=== PATIENT | female | born 1935 | race Caucasian/White ===

== ENCOUNTER 2023-07-08 01:41 | Day surgery (SDC) | payer MEDICARE, SELFPAY ==
[2023-06-26 13:15] VITALS: BMI 26.9
--- NOTE | 2023-06-26 13:56 | PC.NURSE ---
Spoke with PATIENT regarding medication ELIQUIS. Pt. verbalizes understanding that the last dose of ELIQUS is to be taken on 07/05/2023 and the Endoscopist will instruct them when to restart after the procedure.
[2023-07-08 13:45] VITALS: BP 161/75; PULSE 80; RESP 20; TEMP 36.4; O2SAT 92
--- NOTE | 2023-07-08 13:50 | WPDANESEPPF ---
Anes - Initial Pre Proc Eval Procedure: Operation Date: 07/08/23 14:30 Proposed Procedures p Esophagogastroduodenoscopy - Sushant Wooten MD Date/Time: 07/08/23 13:50 Surgeon: Sushant Wooten MD Pre Op Diagnosis: abdominal pain Patient Data Age: 88 Gender: F Height: 1.63 m Weight: 70.7 kg Last Vital Signs Temp 97.6 F 07/08/23 13:45 Pulse 80 07/08/23 13:45 Resp 20 07/08/23 13:45 BP 161/75 H 07/08/23 13:45 Pulse Ox 92 07/08/23 13:45 O2 Del Method Room Air 07/08/23 13:45 Allergies Allergy/AdvReac Type Severity Reaction Status Date / Time iodine Allergy Severe Loss of Verified 07/08/23 13:42 Consciousness clindamycin Allergy Intermediate Unknown Verified 07/08/23 13:42 Penicillins Allergy Intermediate Hives / Verified 07/08/23 13:42 Red Face Sulfa (Sulfonamide Allergy Intermediate Muscle Verified 07/08/23 13:42 Antibiotics) Spasms Home Medications Medication Instructions Recorded Confirmed Type acetaminophen 325 mg capsule 325 mg PO Q6H PRN Pain 04/02/22 06/26/23 History (Tylenol) apixaban 2.5 mg tablet (Eliquis) 2.5 mg PO BID 04/02/22 06/26/23 History cholecalciferol (vitamin D3) 25 25 mcg PO EVERY OTHER DAY 04/02/22 06/26/23 History mcg (1,000 unit) capsule diltiazem HCl 300 mg 300 mg PO DAILY 04/02/22 06/26/23 History capsule,extended release 24 hr dofetilide 250 mcg capsule 250 mcg PO DAILY 04/02/22 06/26/23 History furosemide 20 mg tablet 20 mg PO BID 04/02/22 06/26/23 History losartan 50 mg tablet 50 mg PO DAILY 04/02/22 06/26/23 History magnesium oxide 400 mg (241.3 mg 400 mg PO BID 04/02/22 06/26/23 History magnesium) tablet metoprolol tartrate 50 mg tablet 50 mg PO BID 04/02/22 06/26/23 History pravastatin 40 mg tablet 40 mg PO DAILY 04/02/22 06/26/23 History Patient hx anesthesia problems: none Family hx anesthesia problems: none Results Review: All pre-operative results and documents have been reviewed as part of the pre-operative evaluation. [facility] Past Medical History Medical History (Updated 04/02/22 @ 13:27 by Patricio Cisneros MD) Afib Aortic aneurysm, abdominal Arthritis of right wrist History of breast cancer History of pacemaker Pacemaker Surgical History Surgical History History of heart artery stent History of heart bypass surgery History of mastectomy right side Family History Family History Father Heart attack Sibling Heart disease Other Cancer Social History Social History Smoking packs per day: 0.75 Smoking cigarettes per day: 15.0 Years smoked: 20 Smoking pack-years: 15.00 Smoking status: Former smoker Alcohol intake: current Substance use: never Substance use type: does not use Living arrangements: with family Occupation/Education: retired Spiritual care concerns: No Anes - Eval Final PreProcedure Day of Procedure 07/08/23 13:50 Patient weight: normal Heart: regular rate and rhythm Lungs: clear to auscultation Airway: Mallampati scale class II Neurological: alert and oriented Last oral intake: >/= 8 hours ASA classification: III Emergent: no Anesthetic plan: proceed Anesthesia type and monitoring: general GIVS and standard monitoring Results Review: All pre-operative results and documents have been reviewed as part of the pre-operative evaluation. Informed Consent: The patient's anesthetic plan and its attendant risks and benefits were discussed with the patient/family/POA. Questions were solicited and answers provided to the satisfaction of the patient/family/POA.
[2023-07-08] MEDS: LACTATED RINGERS 1,000 ML 150 ML IV CONT (13:57)
--- NOTE | 2023-07-08 14:38 | PM.HPGS ---
History of Present Illness History of Present Illness Consent: Risks, benefits, and alternatives have been discussed and questions answered. Patient agrees to proceed with procedure. Chief complaint: abdominal pain Narrative: Samantha Bacon is a 88 year old female with 2 months of intermittent upper abdominal pain and morning nausea, never had egd. She had CT scan elsewhere and apparently no major findings. Review of Systems Review of Systems: All systems reviewed & are unremarkable except as noted in HPI and below PMFSH Past Medical History Medical History (Updated 07/08/23 @ 14:39 by Sushant Wooten MD) Afib Aortic aneurysm, abdominal Arthritis of right wrist History of breast cancer History of pacemaker Nausea Pacemaker Upper abdominal pain Surgical History Surgical History History of heart artery stent History of heart bypass surgery History of mastectomy right side Family History Family History Father Heart attack Sibling Heart disease Other Cancer Social History Social History Smoking packs per day: 0.75 Smoking cigarettes per day: 15.0 Years smoked: 20 Smoking pack-years: 15.00 Smoking status: Former smoker Alcohol intake: current Substance use: never Substance use type: does not use Living arrangements: with family Occupation/Education: retired Spiritual care concerns: No Meds Home Medications and Allergies Home Medications Medication Instructions Recorded Confirmed Type acetaminophen 325 mg capsule 325 mg PO Q6H PRN Pain 04/02/22 06/26/23 History (Tylenol) apixaban 2.5 mg tablet (Eliquis) 2.5 mg PO BID 04/02/22 07/08/23 History cholecalciferol (vitamin D3) 25 25 mcg PO EVERY OTHER DAY 04/02/22 06/26/23 History mcg (1,000 unit) capsule diltiazem HCl 300 mg 300 mg PO DAILY 04/02/22 07/08/23 History capsule,extended release 24 hr dofetilide 250 mcg capsule 250 mcg PO DAILY 04/02/22 07/08/23 History furosemide 20 mg tablet 20 mg PO BID 04/02/22 06/26/23 History losartan 50 mg tablet 50 mg PO DAILY 04/02/22 06/26/23 History magnesium oxide 400 mg (241.3 mg 400 mg PO BID 04/02/22 06/26/23 History magnesium) tablet metoprolol tartrate 50 mg tablet 50 mg PO BID 04/02/22 07/08/23 History pravastatin 40 mg tablet 40 mg PO DAILY 04/02/22 06/26/23 History Allergies Allergy/AdvReac Type Severity Reaction Status Date / Time iodine Allergy Severe Loss of Verified 07/08/23 13:42 Consciousness clindamycin Allergy Intermediate Unknown Verified 07/08/23 13:42 Penicillins Allergy Intermediate Hives / Verified 07/08/23 13:42 Red Face Sulfa (Sulfonamide Allergy Intermediate Muscle Verified 07/08/23 13:42 Antibiotics) Spasms Vital Signs Vital Signs - 24 hr 07/08/23 13:45 Temperature 97.6 F Pulse Rate 80 Respiratory Rate 20 Blood Pressure 161/75 H Pulse Oximetry 92 Oxygen Delivery Room Air Exam Const: General: comfortable and no acute distress HENMT: Face/Nose/Sinus: Normal nares present Eyes: General: appearance normal, both eyes and all related structures Neck: Neck: no JVD Resp: Auscultation: clear to auscultation bilaterally Cardio: Rate: regular rate Rhythm: regular rhythm GI: Inspection: non-distended GI Palp: Yes Soft to palpation Skin: General skin exam: normal color Neuro: General: gait normal Speech: normal speech Extrem: General: normal to inspection Psych: Mental Status: mental status grossly normal Assessment and Plan Assessment and plan (1) Upper abdominal pain: Code(s): R10.10 - Upper abdominal pain, unspecified Status: Acute Assessment and Plan: egd with bx (2) Nausea: Code(s): R11.0 - Nausea Status: Acute
[2023-07-08] MEDS: BENZOCAINE (*SP) 60 ML SPRAY CAN (HURRICAINE) 1 SPRAY MUCOUS MEM (14:45)
[2023-07-08 14:56] VITALS: BP 129/63; PULSE 90; RESP 21; O2SAT 93
--- NOTE | 2023-07-08 15:00 | SUR.OPER ---
small bowel polyp not retrieved Dr Jay mak
[2023-07-08 15:06] VITALS: BP 117/57; PULSE 77; RESP 23; O2SAT 93
[2023-07-08 15:16] VITALS: BP 129/56; PULSE 76; RESP 15; O2SAT 93
== END 2023-07-08 15:25 | disposition home or self-care (01) ==
PROVIDERS: PCP Internal Medicine; Visit Provider Internal Medicine Gastroenterology
PROC: 0DJ08ZZ Inspection of Upper Intestinal Tract, Via Natural or Artificial Opening Endoscopic (ICD-10-PCS; CPT 43235; principal; 2023-07-08 14:30)
DX: K29.50 Unspecified chronic gastritis without bleeding (principal); K29.80 Duodenitis without bleeding; K31.7 Polyp of stomach and duodenum; I48.91 Unspecified atrial fibrillation; I71.40 Abdominal aortic aneurysm, without rupture, unspecified; Z79.01 Long term (current) use of anticoagulants; Z95.0 Presence of cardiac pacemaker; Z85.3 Personal history of malignant neoplasm of breast; Z95.5 Presence of coronary angioplasty implant and graft; Z95.1 Presence of aortocoronary bypass graft; Z87.891 Personal history of nicotine dependence
CPT/HCPCS: 43239; 43251; 88305; J2704; J7120

== ENCOUNTER 2025-01-07 14:37 | Outpatient (CLI) | payer MEDICARE, SELFPAY ==
--- NOTE | ~2025-01-07 | XR_ITS ---
EXAMINATION: XR chest 2V, 01/07/2025 14:46 CDT HISTORY: ACUTE COUGH COMPARISON: No comparisons available. Technique: 2 views obtained. Findings: Mild pulmonary venous congestion. No pneumothorax. Mild cardiomegaly. Mediastinal and hilar contours are within normal limits. Poststernotomy. Left pacemaker. Impression: Mild CHF Reviewed, dictated and finalized at location A. Impression: Mild CHF
== END 2025-01-07 14:38 | disposition home or self-care (01) ==
PROVIDERS: PCP Internal Medicine; Visit Provider Internal Medicine
DX: R05.1 Acute cough (principal); I50.9 Heart failure, unspecified
CPT/HCPCS: 71046

== ENCOUNTER 2025-01-18 14:23 | Outpatient (CLI) | payer MEDICARE, SELFPAY ==
--- NOTE | ~2025-01-18 | XR_ITS ---
EXAMINATION: XR chest 2V, 01/18/2025 14:38 CDT HISTORY: Hypoxemia COMPARISON: No comparisons available. Technique: 2 views obtained. Findings: Moderate pulmonary venous congestion. No pneumothorax. Mild cardiomegaly. Mediastinal and hilar contours are within normal limits. Post sternotomy. Left pacemaker. Impression: CHF Reviewed, dictated and finalized at location P. Impression: CHF
== END 2025-01-18 14:24 | disposition home or self-care (01) ==
LOC: MICIMG 14:25
PROVIDERS: PCP Internal Medicine; Visit Provider Internal Medicine
DX: I50.9 Heart failure, unspecified (principal); R09.02 Hypoxemia
CPT/HCPCS: 71046

== ENCOUNTER 2025-04-12 14:20 | Outpatient (CLI) | payer MEDICARE, SELFPAY ==
--- NOTE | 2025-04-12 | CONSULT_PTH ---
PATIENT: Samantha Bacon LOC: [facility] U#:[id number] AGE/SX: 89/F ROOM: RE04/12/[address]: Ramez Rodas MD : 1935 BED: DIS: 04/12/2025 SPEC #: [id number] RECD: 04/12/25 16:19 STATUS: NIKOS REYuli #: [id number] JESSICA: 04/12/25 00:[address]: Ramez Rodas DEPT: [facility] Consult RECD BY: Barry Aguilar MLT ENTERED: 04/12/25 16:20 SP TYPE: Consult OT DR: Cornelio Magaña, Tissues: A - Peripheral Smear Procedures: Hematology Consult
--- NOTE | 2025-04-12 | CY_PTH ---
PATIENT: Samantha Bacon LOC: [facility] U#:[id number] AGE/SX: 89/F ROOM: RE04/12/[address]: Ramez Rodas MD : 1935 BED: DIS: 04/12/2025 SPEC #: [id number] RECD: 04/13/25 07:12 STATUS: NIKOS REQ #: [id number] JESSICA: 04/12/25 00:[address]: Ramez Rodas DEPT: [facility] Cytology RECD BY: Geraldine Montemayor ENTERED: 04/13/25 07:12 SP TYPE: Cytology OT DR: Cornelio Magaña, Tissues: A - Flow Procedures: Flow Cytometry
--- OUTSIDE RECORDS SUMMARY | 2025-04-12 13:30 | XMS_ITS | Encounter Summary ---
Author Organization [facility] [employer] [facility] Address [address] [place] [address] Care Team Providers Care Discharge Specialist Name Role Phone Unavailable Primary Care Provider Unavailabl e Reason for Visit * Reason Comments Anemia Encounter Details Date Type Department Care Team (Late st Contact Info) Description 04/12/2025 1:30 PM CHANNEL SALES MANAGER Office Visit [facility] Oncology and Hematology - [place] [address] [place] [address] Ramez Rodas MD [address] [place] [address] Anemia, chronic disease (Primary Dx); Other vitamin B12 deficiency anemia Social History Tobacco Use Types Packs/Day Years Used Date Smoking Tobacco: Former Cigarettes 1 30 0 04/21/1964 - 04/21/1994 Smokeless Tobacco: Never Alcohol Use Standard Drinks/Week Comments Never 0 (1 standard drink = 0.6 oz pur e alcohol) Comments Unknown Sex and Gender Information Value Date Recorded Sex Assigned at Not on file Legal Sex Female 11:21 PM CDT Gender Identity Not on file Sexual Orientation Not on file documented as of this encounter Last Filed Vital Signs Vital Sign Reading Time Taken Comments Blood Pressure 115/67 04/12/2025 1:19 PM CHANNEL SALES MANAGER Pulse 80 04/12/2025 1:19 PM CHANNEL SALES MANAGER Temperature 36.6 C (97.9 F) 04/12/2025 1:19 PM CHANNEL SALES MANAGER Respiratory Rate 16 04/12/2025 1:19 PM CHANNEL SALES MANAGER Oxygen Saturation 90% 04/12/2025 1:1 9 PM CHANNEL SALES MANAGER 3 liters O2 Inhaled Oxygen Concentration - - Weight 63.8 kg (140 lb 9.6 oz) 04/12/20 25 1:19 PM CHANNEL SALES MANAGER Height 162.6 cm (5' 4) 04/12/2025 1:19 PM CHANNEL SALES MANAGER Body Mass Index 24.13 04/12/2025 1:19 PM CHANNEL SALES MANAGER documented in this encounter Functional Status * Encounter Vitals Question Answer Date of Assessment Author Pain Score Zero 04/12/2025 1:19 PM CHANNEL SALES MANAGER Alejandra Romero documented as of this encounter Progress Notes * Ramez Rodas MD - 04/12/2025 1:30 PM CST Hematology-oncology consult Note Requesting Physician Primary Care Physician No primary care provider on file. Problem list There is no problem list on file for this patient. Previous TREATMENT N/A ? Reason for Visit Samantha Bacon is a 89 y.o. female who was referred for consultation for anemia along with her daugther. History of present illness She has history of coronary artery disease status post CABG in the and [place] [address] 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 She has history of atrial fibrillation underwent cardioversion in the past, status post pacemaker in 2019. She takes Eliquis 2.5 mg twice daily and dofetilide to 50 mg twice daily. She also has hypertension, hyperlipidemia and history of CHF with ejection fraction 60% in December 2024. 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 Also has history of breast cancer in 1994 s/p R mastectomy and adjuvant chemo and now undergoes annual mammograms. She was admitted in December for abdominal pain to [facility] associated with nausea. Imaging was unremarkable per records, abdominal aortic aneurysm repair was normal with no issues. Patient received pain medications that cause sedation resulting in Narcan which eventually led to A-fib with RVR. Patient underwent cardioversion during the hospital stay and initiated anticoagulation. Upper GI endoscopy demonstrated gastritis with old bleeding ulcer and grade 1 varices. Colonoscopy showed a polyp which was removed. She initiated B12 and folic acid supplements for hematology consultation in the hospital. She takes clopidogrel, diltiazem, dofetilide, Eliquis, fluticasone, furosemide, losartan, metoprolol, nitroglycerin, pravastatin, vitamin D at home 01/24/2025: CBC demonstrated white blood cells at 3.1, hemoglobin at 8.8 g/dL, hematocrit 29.7, MCV at 1.4, platelets 199. 01/06/2025: Hemoglobin was 9.9 g/dL and white blood cells at 3.7. Serum folate 7.1 and vitamin B12 at 901. 12/30/2024: Hemoglobin 12.1, white cell count 2.76 12/26/2024: Vitamin B12 very low at 166 CT head on December 27, 2024 demonstrated small vessel disease with no bleeding or mass CT chest and pelvis on December 27 demonstrated findings post endovascular repair of abdominal aortic aneurysm (6 stents placed in 07/2024), no significant change in severely enlarged infrarenal abdominal aortic aneurysm at 8.5 x 6.7 cm, cardiomegaly. Bilateral common iliac artery aneurysms. She reported having night sweats for past few months + weight loss of 30 pounds since early 2024. Past Medical History No past medical history on file. Surgical History No past surgical history on file. Medications No current outpatient medications on file. No current facility-administered medications for this visit. Allergies Not on File Immunizations: There is no immunization history on file for this patient. Family History No family history on file. Social History Social History Tobacco Use Smoking status: Not on file Smokeless tobacco: Not on file Substance Use Topics Alcohol use: Not on file Review of Systems Negative except as listed in HPI Physical Exam Vitals: As per nursing note Constitutional: Well developed, well nourished, on O2 Teeth and gum. No signs of infection or swelling. Eyes: PERRL, conjunctiva normal HEENT: Atraumatic, external ears normal, nose normal, oropharynx moist, no pharyngeal exudates. no sinus tenderness Respiratory: coarse breath sounds Cardiovascular: Normal rate, normal rhythm GI: Soft, nondistended, normal bowel sounds, nontender, no splenomegaly, no hepatomegaly, no mass, no rebound, no guarding Musculoskeletal: No edema, no tenderness, no deformities. Back- no tenderness Lymphatic: No lymphadenopathy noted Neurologic: Alert & oriented x 3 Psychiatric: Speech and behavior appropriate ? labs No results found for this or any previous visit (from the past 24 hours). Pathology ? Imaging & Other Studies Performance Status? Assessment / Plan: ? Macrocytic anemia: -Reviewed inpatient medical records which demonstrated very low vitamin B12 at 166 on December 27, 2024 and interestingly hemoglobin was normal at greater than 12 g/dL. Patient seems to have [id number] injections and patient and hemoglobin on January 24 dropped to 8.8 g/dL based on available medical records, did not see if hemolytic anemia workup has been performed. Macrocytic Anemia: - Plan to repeat CBC, CMP, B12 level, folate - Check LDH, haptoglobin, direct antiglobulin test, TSH - Iron panel, serum ferritin, peripheral smear, flow cytometry (since pt has weight loss, night sweats) - pt received B12 injections while inpatient in Sep and is on B12 oral supplementation - Plan for RTC 4-6 weeks and if none of above w/u is an etiology, plan for bone marrow bx. Occasional Abdominal pain : - Found to have a gastric ulcer in Dec 2024. On PPI improving Mild COPD: - On O2 continuous Ramez Rodas MD ,04/12/2025 12:03 PM ? Total time spent 60 minutes, two third of the total time spent counseling patient [id number]. CC:? NEL SALES MANAGER documented in this encounter Plan of Treatment Upcoming Encounters Date Type Department Care Team (Late st Contact Info) Description 05/09/2025 4:30 PM CHANNEL SALES MANAGER Telephone Check Up [facility] Oncology and Hematology - [place] [address] [facility] [address] [address] [place] [address] Fabricio Brooks MD [address] [facility] [address] [place] [address] Scheduled Orders Name Type Priority Associated Diagnoses Orde r Schedule CBC WITH DIFFERENTIAL Lab Routine Anemia, chronic disease Ordered: 04/12/2025 COMPREHENSIVE METABOLIC PANEL Lab Stat Anemia, chronic disease Expected: 04/12/2025, Expires: 04/12/2026 FLOW CYTOMETRY PANEL Lab Routine Anemia, chronic disease Ordered: 04/12/2025 VITAMIN B12 AND FOLATE Lab Routine Anemia, chronic disease Expected: 04/12/2025, Expires: 04/12/2026 LACTATE DEHYDROGENASE Lab Routine Anemia, chronic disease Ordered: 04/12/2025 DIRECT ANTIGLOBULIN TEST W/REFLEX Blood Bank Routine Anemia, chronic disease Ordered: 04/12/2025 IRON, TIBC, AND PERCENT SATURATION Lab Routine Anemia, chronic disease Expected: 04/12/2025, Expires: 04/12/2026 FERRITIN Lab Routine Anemia, chronic disease Expected: 04/12/2025, Expires: 04/12/2026 TSH Lab Routine Anemia, chronic disease Ordered: 04/12/2025 PERIPHERAL BLOOD SMEAR PATHOLOGY INTERP Lab Routine Anemia, chronic disease Ordered: 04/12/2025 documented as of this encounter Visit Diagnoses Diagnosis Anemia, chronic disease- Primary Anemia of other chronic disease Other vitamin B12 deficiency anemia documented in this encounter
--- OUTSIDE RECORDS SUMMARY | 2025-04-12 14:24 | XMS_ITS | Clinical Summary ---
Author Organization [facility] Address [address] [place] [address] Care Team Providers Care Software Deployment Engineer Name Role Phone Cornelio Magaña MD Primary Care Provider [phone] Source Comments [facility],non-owned Affiliates and Associated Physician Practices is amultiple site organization consisting of ambulatory clinics and hospital sitesin [place], [place], [place] and [place]. This disclosure is being madepursuant to the Care Everywhere program and may not contain all information available regarding this patient. Last updated 18.[facility] Allergies Active Allergy Reactions Criticality Noted Date Comments Penicillins Rash Medium 11/22/2015 Povidone Iodine Rash Medium 11/22/2015 Sulfa Drugs Other Low 11/22/2015 Leg pain Medications * Be aware that medications may not be up to date on this document. Alwaysverify current medications with the patient. acetaminophen CR (TYLENOL ARTHRITIS PAIN) 650 MG tablet Take 650 mg by mouth q6h PRN (Pain). 11/22/2015 Active sotalol (BETAPACE) 80 MG tablet 11 11/07/2015 Active metoprolol tartrate (LOPRESSOR) 25 MG tablet 11 08/15/2015 Active magnesium oxide (MAGNESIUM-OXIDE) 400 (241.3 MG) MG tablet 11 10/28/2015 Active lisinopril (PRINIVIL; ZESTRIL) 20 MG tablet 11 10/28/2015 Active isosorbide mononitrate CR 24hr (IMDUR) 30 MG tablet 5 08/16/2015 Active pravastatin (PRAVACHOL) 40 MG tablet 5 10/28/2015 Active rivaroxaban (XARELTO) 15 MG tablet 0 08/28/2015 Active hydroCHLOROthiazi de (MICROZIDE) 12.5 MG capsule 11 10/28/2015 Act fletcher Social History Tobacco Use Types Packs/Day Years Used Date Smoking Tobacco: Former Alcohol Use Standard Drinks/Week Comments No 0 (1 standard drink = 0.6 oz pur e alcohol) Comments Unknown Sex and Gender Information Value Date Recorded Sex Assigned at Not on file Legal Sex Female 5:35 PM SOLAR POWER INSTALLER Gender Identity Not on file Sexual Orientation Not on file Last Filed Vital Signs Vital Sign Reading Time Taken Comments Blood Pressure 145/83 01/17/2016 11:46 AM CDT Pulse 80 01/17/2016 11:46 AM CDT Temperature - - Respiratory Rate - - Oxygen Saturation 90% 01/17/2016 11:46 AM CDT Inhaled Oxygen Concentration - - Weight 81.6 kg (180 lb) 01/17/2016 7:13 AM CDT Height 162.6 cm (5' 4) 01/17/2016 7:13 AM CDT Body Mass Index 30.9 01/17/2016 7:13 AM CDT Plan of Treatment Health Maintenance Due Date Last Done Comments BONE DENSITY TESTING 1935 DTAP/TDAP/TD VACCINES (1 - Tdap) 01/24/1956 PNEUMOCOCCAL VACCINE 50+ (1 of 1 - PCV) 1987 ZOSTER VACCINE (1 of 2) 1987 Respiratory Syncytial Virus (RSV) Vaccine Pt: or over 60 yrs (1 - 1-dose 75+ series) 01/24/2012 DEPRESSION SCREENING 04/21/2024 MEDICARE AWV CALENDAR YEAR 2024 COVID-19 VACCINE ( - 2024-2 6 season) 2024 INFLUENZA VACCINE (#1) 2024 HEPATITIS B VACCINE Aged Out No longe r eligible based on patient's age to complete this topic HIB VACCINE Aged Out No longer eligi ble based on patient's age to complete this topic HPV VACCINE Aged Out No longer eligi ble based on patient's age to complete this topic MENINGOCOCCAL (Group B) VACC INE SHARED DECISION-MAKING Aged Out No longer eligibl e based on patient's age to complete this topic MENINGOCOCCAL GROUPS A/C/Y/W VACCINE Aged Out No longer eligible b ased on patient's age to complete this topic Insurance SELF PAY NO INSURANCE Member Subscriber Plan / Payer (Ef fective for All Dates) Name:Wander Villareal Member ID:Not on file Relation to Subscriber:Not on file Name:WANDER VILLAREAL Subscriber ID:Not on file (Home) Address: [address] [place] [phone] Payer ID:Not on file Group ID:Not on file Type:Self Pay Address: [place], [place] SELF PAY NO INSURANCE Member Subscriber Plan / Payer (Ef fective for All Dates) Name:Wander Villareal Member ID:Not on file Relation to Subscriber:Not on file Name:WANDER VILLAREAL Subscriber ID:Not on file (Home) Address: [address] [place] [phone] Payer ID:Not on file Group ID:Not on file Type:Self Pay Address: [place], [place] [employer] MED[employer]ARE ADV SELF PAY NO INSURANCE Member Subscriber Plan / Payer (Ef fective for All Dates) Name:Wander Villareal Member ID:Not on file Relation to Subscriber:Not on file Name:WANDER VILLAREAL Subscriber ID:Not on file (Home) Address: [address] [place] [phone] Payer ID:Not on file Group ID:Not on file Type:Self Pay Address: [place], [place] Care Teams Software Deployment Engineer Relationship Specialty Start Date End Date Cornelio Magaña MD [address] [phone] PCP - General 10/18/15
--- OUTSIDE RECORDS SUMMARY | 2025-04-12 14:24 | XMS_ITS | Encounter Summary ---
Author Organization [facility] Address [address] [facility] [place] [address] Care Team Providers Care Infectious Disease Physician Name Role Phone Cornelio Magaña MD Primary Care Provider [phone] Encounter Details Date Type Department Care Team (Late st Contact Info) Description 12/17/2018 Lab Requisition [facility] Care DermPath Lab [address] [facility] [place] [address] James [place] [address] Social History Tobacco Use Types Packs/Day Years Used Date Smoking Tobacco: Former Alcohol Use Standard Drinks/Week Comments No 0 (1 standard drink = 0.6 oz pur e alcohol) Comments Unknown Sex and Gender Information Value Date Recorded Sex Assigned at Not on file 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 Gender Identity Not on file Sexual Orientation Not on file documented as of this encounter Plan of Treatment Not on file documented as of this encounter Procedures Procedure Name Priority Date/Time Associated Diagnosis Comments DERMATOPATHOLOGY Routine 12/16/2018 12:0 0 AM CDT documented in this encounter Results * DERMATOPATHOLOGY (12/16/2018 12:00 AM CDT) Case Report Dermatopathology Report Case: [id number] Authorizing Provider: James Green MD Collected: 12/16/2018 12:00 AM Ordering Location: [facility] DermPath Lab Received: 12/17/2018 12:17 PM Pathologist: Kenney Geronimo MD Specimen: Skin, left nasal sidewall 2:35 PM CDT DERMATOPATHOLOGY LABORATORY Final Diagnosis Specimen A. 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 2:35 PM CDT DERMATOPATHOLOGY LABORATORY Gross Description Specimen A: Received is one formalin filled container labeled with the patient's name and designated left nasal sidewall. The specimen consists of a shave biopsy measuring [id number]. Jar 0. 2:35 PM CDT DERMATOPATHOLOGY LABORATORY Microscopic Description Specimen A. SKIN, left nasal sidewall: There is focal parakeratosis. The lower half of the epidermis shows disorderly maturation of keratinocytes with nuclear pleomorphism. Focally there is a suprabasilar cleft with acantholytic cells. 2:35 PM CDT DERMATOPATHOLOGY LABORATORY Disclaimer An external and internal positive and negative controls are appropriate for the histochemical, immunohistochemical and immunofluorescence stain(s) in this case (if any), except where stated explicitly. The performance characteristics of the stain(s) cited in this report were developed and its performance characteristic determined by the Dermatopathology Laboratory at [facility], directed by Dr. Dl Geronimo. These tests need not be, and therefore are not, approved by the [place] Food and Drug Administration. The tests are used for clinical purposes. Billing Codes Specimen Charges Stain Charges 53460 1 2:35 PM CDT DERMATOPATHOLOGY LABORATORY Embedded Images 2:35 PM CDT DERMATOPATHOLOGY LABORATORY Pathology/Cytolog y TISSUE SPECIMEN FROM SKIN / Unknown 12/16/2018 12/17/2018 12:17 PM CDT James Green MD LAB - PATHOLOGY/CYTOLOGY ORD ERABLES Final Result DERMATOPATHOLOGY LABORATORY [facility] - Department of Dermatology [address] [facility], [address] [place] [address], [facility] [phone] documented in this encounter Visit Diagnoses Not on filedocumented in this encounter Care Teams Infectious Disease Physician Relationship Specialty Start Date End Date Cornelio Magaña MD [address] [address] PCP - General 10/18/15 documented as of this encounter
--- OUTSIDE RECORDS SUMMARY | 2025-04-12 14:24 | XMS_ITS ---
Author Organization [facility] Address [address] [place] [address] Care Team Providers Care Back Tufter Name Role Phone Cornelio Magaña MD Primary Care Provider Scott Norris MD Unavailable Lizbeth Queen MD Unavailable Pillo Pedroza MD Unavailable Nikolas Szymanski MD Unavailable Adrianne Aguilar MD Unavailable Avila Acevedo MD Unavailable Active Problems Problem Noted Date Diagnosed Date Severe protein-calorie malnutrition 10/07/2024 Hypoxia 10/06/2024 Epigastric pain 09/16/2024 Melena 08/26/2024 Coronary artery disease 08/03/2024 Assessment & Plan (08/03/2024 8:36 AM CDT): - CAD s/p CABG 1994 f/b PCI within SVG 2013 - Continue ASA, statin - Continue cardiac meds when able Sinus node dysfunction 08/03/2024 Assessment & Plan (08/03/2024 8:37 AM CDT): S/p Biotronik PPM 2020 Chronic kidney disease 08/03/2024 Assessment & Plan (08/03/2024 8:38 AM CDT): - Cr clearance 39 - Avoid nephrotoxic medications - Monitor cr AAA (abdominal aortic aneurysm) without rupture 08/03/2024 Cellulitis 06/21/2024 Constipation 06/21/2024 Disorder of shoulder 06/21/2024 Localized, primary osteoarthritis of hand 2024 Loss of hair 06/21/2024 Low back pain 06/21/2024 Overview (06/21/2024): spinal stenosis, CT 11/02 Near syncope 06/21/2024 Neck pain 06/21/2024 Olecranon bursitis 06/21/2024 Pain in wrist 06/21/2024 Abnormal finding on mammography 12/17/2023 Gastritis 08/12/2023 Abdominal pain 04/22/2023 Dyspnea 03/24/2023 Nausea 03/24/2023 Otalgia of right ear 05/12/2022 Hypercalcemia 03/21/2022 Irritable bowel syndrome 06/06/2021 Osteoarthritis 06/06/2021 Skin lesion 09/05/2020 Bilateral pleural effusion 02/03/2019 Sleep apnea 10/13/2018 Overview (06/21/2024): can't use CPAP Hyperlipidemia 10/13/2018 Essential hypertension 10/13/2018 Assessment & Plan (08/04/2024 7:17 AM CDT): - VS Q4 hrs and PRN - Home regimen: diltiazem, lasix, losartan, metoprolol - Resume home regimen as able Coronary atherosclerosis 10/13/2018 Overview (06/21/2024): s/p VA Atrial fibrillation 10/13/2018 Overview (06/21/2024): recurrent Assessment & Plan (08/04/2024 7:18 AM CDT): Home regimen: Eliquis (last dose 07/31), cardizem, tikosyn, metoprolol - Resume home regimen as able - Follow up plan to resume Eliquis Shoulder joint pain 01/07/2017 Abdominal aortic aneurysm (AAA) 03/03/2015 Assessment & Plan (08/04/2024 7:20 AM CDT): 08/03: s/p 3 vessel PMEG to SMA, bilateral renals. -OOB/ ambulate - ASA, start Plavix today. - Q4 NV exams - Monitor incisions for bleeding/hematoma - Normotension BP goals - Pain control - DC stone - Advance diet as tolerated Malignant tumor of breast 04/20/1989 Overview (06/21/2024): mastectomy, chemo Current Treatment and Therapy Plans No current plan information found. Past Treatment and Therapy Plans No past plan information found. Lifetime Dose Tracking * Chemical Lifetime Dose Automatic Entry Manual Entr y DLP 1,430 mGycm 1,430 mGycm 0 mGycm Resolved Problems Problem Noted Date Diagnosed Date Resolved Date Contrast media allergy 08/03/202408/03
--- OUTSIDE RECORDS SUMMARY | 2025-04-12 14:24 | XMS_ITS | Encounter Summary ---
Author Organization [facility] Address [address] [place] [address] Care Team Providers Care Wet Cotton Feeder Name Role Phone Cornelio Magaña MD Primary Care Provider Encounter Details Date Type Department Care Team (Late st Contact Info) Description 01/11/2021 Lab Requisition [facility] Care DermPath Lab [address] [facility] [place] [address] [place] [address] Social History Tobacco Use Types Packs/Day Years Used Date Smoking Tobacco: Former Alcohol Use Standard Drinks/Week Comments No 0 (1 standard drink = 0.6 oz pur e alcohol) Comments Unknown Sex and Gender Information Value Date Recorded Sex Assigned at Not on file 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 Gender Identity Not on file Sexual Orientation Not on file documented as of this encounter Plan of Treatment Not on file documented as of this encounter Procedures Procedure Name Priority Date/Time Associated Diagnosis Comments DERMATOPATHOLOGY Routine 01/09/2021 3:33 AM CDT documented in this encounter Results * DERMATOPATHOLOGY (01/09/2021 3:33 AM CDT) Case Report Dermatopathology Report Case: [id number] Authorizing Provider: James Green MD Collected: 01/09/2021 03:33 AM Ordering Location: [facility] DermPath Lab Received: 01/11/2021 05:59 AM Pathologist: Anel Oleary MD Specimen: Skin, left ala 2:58 PM CDT DERMATOPATHOLOGY LABORATORY Final Diagnosis Specimen A. 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 2:58 PM CDT DERMATOPATHOLOGY LABORATORY Gross Description Specimen A: Received is one formalin filled container labeled with the patient's name and designated left ala. The specimen consists of a shave biopsy measuring [id number]. Jar 0. 2:58 PM CDT DERMATOPATHOLOGY LABORATORY Microscopic Description Specimen A. SKIN, left ala: Arising in the epidermis and extending into the dermis there are irregularly shaped aggregates of keratinocytes showing evidence of premature cornification. 2:58 PM CDT DERMATOPATHOLOGY LABORATORY Disclaimer An external and internal positive and negative controls are appropriate for the histochemical, immunohistochemical and immunofluorescence stain(s) in this case (if any), except where stated explicitly. The performance characteristics of the stain(s) cited in this report were developed and its performance characteristic determined by the Dermatopathology Laboratory at [facility], directed by Dr. Dl Geronimo. These tests need not be, and therefore are not, approved by the [place] Food and Drug Administration. The tests are used for clinical purposes. Billing Codes Specimen Charges Stain Charges 41021 1 2:58 PM CDT DERMATOPATHOLOGY LABORATORY Embedded Images 2:58 PM CDT DERMATOPATHOLOGY LABORATORY Pathology/Cytolo gy TISSUE SPECIMEN FROM SKIN / Unknown 01/09/2021 3:33 AM CDT 01/11/2021 5:59 AM CDT us James Green MD LAB - PATHOLOGY/CYTOLOGY ORD ERABLES Final Result DERMATOPATHOLOGY LABORATORY [facility] - Department of Dermatology [address], [address] [phone] documented in this encounter Visit Diagnoses Not on filedocumented in this encounter Care Teams Wet Cotton Feeder Relationship Specialty Start Date End Date Cornelio Magaña MD [address] [facility] [address] [place] [phone] PCP - General 10/18/15 documented as of this encounter
--- OUTSIDE RECORDS SUMMARY | 2025-04-12 14:24 | XMS_ITS | Encounter Summary ---
Author Organization [facility] Address [address] [facility] [place] [address] Care Team Providers Care Document Management Consultant Name Role Phone Cornelio Magaña MD Primary Care Provider [phone] Encounter Details Date Type Department Care Team (Late st Contact Info) Description 01/14/2019 Lab Requisition [facility] Care DermPath Lab [address] [facility], [place] [address] James Green MD [place] [address] Social History Tobacco Use Types Packs/Day Years Used Date Smoking Tobacco: Former Alcohol Use Standard Drinks/Week Comments No 0 (1 standard drink = 0.6 oz pur e alcohol) Comments Unknown Sex and Gender Information Value Date Recorded Sex Assigned at Not on file 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 Gender Identity Not on file Sexual Orientation Not on file documented as of this encounter Plan of Treatment Not on file documented as of this encounter Procedures Procedure Name Priority Date/Time Associated Diagnosis Comments DERMATOPATHOLOGY Routine 01/13/2019 12:0 0 AM CDT documented in this encounter Results * DERMATOPATHOLOGY (01/13/2019 12:00 AM CDT) Case Report Dermatopathology Report Case: [id number] Authorizing Provider: James Green MD Collected: 01/13/2019 12:00 AM Ordering Location: [facility] DermPath Lab Received: 01/14/2019 01:56 PM Pathologist: Kenney Geronimo MD Specimen: Skin, right inferior patella 12:22 PM CDT DERMATOPATHOLOGY LABORATORY Final Diagnosis Specimen A. SKIN, right inferior patella: VERRUCA VULGARIS (B07.8) 12:22 PM CDT DERMATOPATHOLOGY LABORATORY at 1221 CDT Clinical History R/O SCC, KA. 12:22 PM CDT DERMATOPATHOLOGY LABORATORY Gross Description Specimen A: Received is one formalin filled container labeled with the patients name and designated right inferior patella. The specimen consists of a shave removal measuring [id number], bisected. Jar 0. 12:22 PM CDT DERMATOPATHOLOGY LABORATORY Microscopic Description Specimen A. SKIN, right inferior patella: There is digitated epidermal hyperplasia, hypergranulosis, vacuolated granular layer cells, and compact hyperorthokeratosis . 12:22 PM CDT DERMATOPATHOLOGY LABORATORY Disclaimer An external and internal positive and negative controls are appropriate for the histochemical, immunohistochemical and immunofluorescence stain(s) in this case (if any), except where stated explicitly. The performance characteristics of the stain(s) cited in this report were developed and its performance characteristic determined by the Dermatopathology Laboratory at [facility], directed by Dr. Dl Geronimo. These tests need not be, and therefore are not, approved by the [place] Food and Drug Administration. The tests are used for clinical purposes. Billing Codes Specimen Charges Stain Charges 83804 1 12:22 PM CDT DERMATOPATHOLOGY LABORATORY Embedded Images 12:22 PM CDT DERMATOPATHOLOGY LABORATORY Pathology/Cytolog y TISSUE SPECIMEN FROM SKIN / Unknown 01/13/2019 01/14/2019 1:56 PM CDT us James Green MD LAB - PATHOLOGY/CYTOLOGY ORD ERABLES Final Result DERMATOPATHOLOGY LABORATORY [facility] - Department of Dermatology [address] [facility], [address]th [address] [place], [place] [address] [place] [address] documented in this encounter Visit Diagnoses Not on filedocumented in this encounter Care Teams Document Management Consultant Relationship Specialty Start Date End Date Cornelio Magaña MD [address] [facility] [address] [place] [id number] PCP - General 10/18/15 documented as of this encounter
--- OUTSIDE RECORDS SUMMARY | 2025-04-12 14:24 | XMS_ITS | Encounter Summary ---
Author Organization [facility] Address [address] [place] [address] Care Team Providers Care Ribbon Hand Name Role Phone Cornelio Magaña MD Primary Care Provider [phone] Scott Norris MD Unavailable [phone] Lizbeth Queen MD Unavailable [phone] Pillo Pedroza MD Unavailable Nikolas Szymanski MD Unavailable [phone] Adrianne Aguilar MD Unavailable [phone] Avila Acevedo MD Unavailable Encounter Details Date Type Department Care Team (Late st Contact Info) Description 09/02/2024 [facility] Post Discharge Follow up phone call [facility] [address] [place] [address] Ranjana Parisi Social History Tobacco Use Types Packs/Day Years Used Date Smoking Tobacco: Former Cigarettes 0.8 38 S tarted: 7 Smokeless Tobacco: Never Alcohol Use Standard Drinks/Week Comments Not Currently 0 (1 standard drink = 0.6 oz pur e alcohol) [facility] Utilities Answer Date Recorded In the past 12 months has e electric, gas, oil, or water company threatened to shut off services in your home? No 08/27/2024 Social Connection and Isolation Panel Answer Date Recorded In a typical week, how many times do you talk on the phone with family, friends, or neighbors? Three times a week 08/27/2024 How often do you get togethe r with friends or relatives? Three times a week 08/27/2024 How often do you attend chur or evangelical services? More than 4 times per year 08/27/2024 Do you belong to any clubs o r organizations such as presybeterian groups, unions, fraternal or athletic groups, or school groups? No 08/27/2024 How often do you attend meet ings of the clubs or organizations you belong to? Never 08/27/2024 Are you , , di vorced, , never , or living with a partner? 08/27/2024 AUDIT-C Answer Date Recorded Q1: How often do you have a drink containing alcohol? Never 08/03/2024 Q2: How many drinks containi ng alcohol do you have on a typical day when you are drinking? Patient does not drink Q3: How often do you have si x or more drinks on one occasion? Never 08/03/2024 Overall Financial Resource Strain (CARDIA) Answe r Date Recorded How hard is it for you to pa y for the very basics like food, housing, medical care, and heating? Not hard at all 08/27/2024 [facility] - Occupational Stress Questionnaire Answer Date Recorded Do you feel stress - tense, restless, nervous, or anxious, or unable to sleep at night because your mind is troubled all the time - these days? Only a little 08/27/2024 Hunger Vital Sign Answer Date Recorded Within the past 12 months, y ou worried that your food would run out before you got the money to buy more. Never true 08/28/19 25 Within the past 12 months, t he food you bought just didn't last and you didn't have money to get more. Never true 08/27/2024 PRAPARE - Transportation Answer Date Re corded In the past 12 months, has l ack of transportation kept you from medical appointments or from getting medications? No 12/2024 In the past 12 months, has l ack of transportation kept you from meetings, work, or from getting things needed for daily living? No 08/27/2024 Housing Stability Vital Sign Answer Richardson e Recorded In the last 12 months, was t here a time when you were not able to pay the mortgage or rent on time? No 08/27/2024 In the past 12 months, how m any times have you moved where you were living? 0 08/27/2024 At any time in the past 12 m onths, were you homeless or living in a snf (including now)? No 08/27/2024 Personal Safety Answer Date Recorded Have you ever been in or are you currently in a harmful physical or emotional relationship or is someone making you feel afraid or unsafe? 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 Gender Identity Female 09/30/2017 2:16 PM CDT Sexual Orientation Not on file documented as of this encounter Plan of Treatment Not on file documented as of this encounter Visit Diagnoses Not on filedocumented in this encounter Additional Health Concerns Infection Onset Date Last Indicated Resolved Time COVID: Suspected 12/26/2024 12/26/2024 12/26/2024 12:24 PM CDT documented as of this encounter Care Teams Ribbon Hand Relationship Specialty Start Date End Date Cornelio Magaña MD PCP - General Internal Medicine 09/28/18 [place] [address] [place] [address] Consulting Physician Vascular Surgery 08/04/24 [place] [address] [address] [place] [address] Consulting Physician Gastroenterology 08/27/24 [place] [address] [address] [place] [address] Consulting Physician Cardiology 10/08/24 [place] [address] [address] [facility] [address] [place] [address] Consulting Physician Pulmonary Disease 10/08/24 Adrianne Aguilar MD [address] [facility] [address] [place] [address] Consulting Physician Gastroenterology 01/01/25 Avila Acevedo MD [address] [place] [address] Referring Physician Cardiology 01/01/25 documented as of this encounter
--- OUTSIDE RECORDS SUMMARY | 2025-04-12 14:24 | XMS_ITS | Clinical Summary ---
Author Organization [facility] Address [address] [place] [address] Care Team Providers Care Packing And Wrapping Supervisor Name Role Phone Cornelio Magaña MD Primary Care Provider [phone] Scott Norris MD Unavailable Lizbeth Queen MD Unavailable [phone] Pillo Pedroza MD Unavailable Nikolas Szymanski MD Unavailable Adrianne Aguilar MD Unavailable Avila Acevedo MD Unavailable Allergies Active Allergy Reactions Criticality Noted Date Comments Ciprofloxacin Palpitations Low 06/21/2024 Clindamycin Rash Medium 06/21/2024 Iodinated Contrast Media Iodine Nausea And Vomiting,Rash,Shortness of breath High 06/01/2015 Penicillins Rash Medium 06/01/2015 Sulfa (Sulfonamide Antibiotics) High Medications pravastatin (PRAVACHOL) 40 mg tabletIndication s:hyperlipidemia Take 1 tablet by mouth nightly 5 Active magnesium oxide (MAG-OX) 400 mg (241.3 mg elemental) tabletIndication s:hypomagnesemia Take 1 tablet by mouth 2 (two) times a day 11 8 Active acetaminophen ER (TYLENOL) 650 mg 8 hr tabletIndication s:Arthritic Pain Take 1 tablet by mouth every 8 (eight) hours as needed for pain 6 Active furosemide (LASIX) 20 mg tabletIndication s:Edema Take 1 tablet by mouth 2 (two) times a day 4 9 Active dofetilide (TIKOSYN) 250 mcg capsuleIndicatio ns:Prevention of Recurrent Atrial Fibrillation Take 1 capsule by mouth 2 (two) times a day 3 Active cholecalciferol (VITAMIN D-3) 1,000 unit capsuleIndicatio ns:Vitamin D Deficiency Take 1 capsule by mouth every other day 7 Active nitroglycerin (NITROSTAT) 0.4 mg SL tabletIndication s:acute episode of anginal pain PLACE 1 TABLET UNDER THE TONGUE FOR CHEST PAIN MAX 3 TABLETS 4 Active dilTIAZem CD (CARDIZEM CD) 300 mg 24 hr capsuleIndicatio ns:Ventricular Rate Control in Atrial Fibrillation Take 1 capsule by mouth every morning [address] (PROTONIX) 40 mg EC tabletIndication s:Stress Ulcer Prophylaxis Take 1 tablet (40 mg total) by mouth daily 60 tablet 5 Active polyvinyl alcohol (LIQUIFILM TEARS) 1.4 % ophthalmic solution Administer 1 drop into both eyes as needed for dry eyes Active albuterol 2.5 mg /3 mL (0.083 %) nebulizer solutionIndicati ons:Chronic Obstructive Pulmonary Disease Take 3 mL (2.5 mg total) by nebulization every 6 (six) hours as needed for wheezing 75 mL 3 5 Active umeclidinium-edilia anteroL (ANORO ELLIPTA) 62.5-25 mcg/actuation blister with deviceIndication s:Bronchospasm Prevention with COPD Inhale 1 puff daily 30 each 3 5 Active oxygenIndication s:Dyspnea Administer 2 L/min into each nostril continuously at 120,000 mL/hr 2 L 3 5 Active Eliquis 2.5 mg tablet Take 1 tablet (2.5 mg total) by mouth 2 (two) times a day 60 tablet 5 Active metoprolol tartrate (LOPRESSOR) 50 mg immediate release tabletIndication s:Atrial Arrhythmia,hyper tension Take 0.5 tablets (25 mg total) by mouth 2 (two) times a day 30 tablet 11 5 026 Active apixaban (ELIQUIS) 2.5 mg tabletIndication s:atrial fibrillation Take 2.5 mg by mouth 2 (two) times a day. Indications: atrial fibrillation Active oxygenIndication s:Dyspnea Administer 2 L/min into each nostril as needed (Dyspnea ). Indications: trouble breathing Active fluticasone propionate (FLONASE) 50 mcg/actuation nasal sprayIndications :Chronic Non-Allergic Rhinitis Administer 2 sprays into each nostril nightly. Indications: chronic stuffy and runny nose not caused by allergies Active predniSONE (DELTASONE) 50 mg tablet Take 1 tablet 13 hours before testing time, take another 7 hours before testing time, and the last one an hour before testing time. 3 tablet 5 Active diphenhydrAMINE (BENADRYL) 50 mg capsule Take 1 tablet one hour prior to testing. 1 capsule 5 Active Active Problems Problem Noted Date Diagnosed Date Severe protein-calorie malnutrition 10/07/2024 Hypoxia 10/06/2024 Epigastric pain 09/16/2024 Melena 08/26/2024 Coronary artery disease 08/03/2024 Assessment & Plan (08/03/2024 8:36 AM CDT): - CAD s/p CABG 1994 f/b PCI within [facility] 2013 - Continue ASA, statin - Continue [...] able Coronary atherosclerosis 10/13/2018 Overview (06/21/2024): s/p [place] Atrial fibrillation 10/13/2018 Overview (06/21/2024): recurrent Assessment [...] of breast 04/20/1989 Overview (06/21/2024): mastectomy, chemo Resolved Problems Problem Noted Date Diagnosed Date Resolved Date Contrast media allergy 08/03/202408/03 Encounters Date Type Department Care Team Description 03/14/2025 10:30 AM BALING MACHINE OPERATOR Office Visit [facility] Medicine Surgery [id number] [place] [address] Medical Office Building [address] [place] [phone] Scott Norris MD Infrarenal abdominal aortic aneurysm (AAA) without rupture (Primary Dx) 03/14/2025 10:15 AM BALING MACHINE OPERATOR - 03/14/2025 11:59 PM BALING MACHINE OPERATOR Hospital Encounter [facility] Imaging and Radiology [id number] [place] [id number] Infrarenal abdominal aortic aneurysm (AAA) without rupture Discharge Disposition: Discharge to home or self care 03/02[facility]20[facility] [id number] [place] [address] Medical Office Building [address] [place] [phone] Mica Anthony RMA Med Management 01/27/2025 1:00 PM CDT Home Care Visit [address] [place] [address] Rekha Holland, RN SN OASIS DISCHARGE 01/26/2025 2:00 PM CDT Home Care Visit [address] [place] [address] Gina Chowdhury OT OT DISCIPLINE DISCHARGE 01/26/2025 12:30 PM CDT Home Care Visit [address] [place] [address] Gina Chowdhury OT OT REASSESSMENT 01/25/2025 12:00 PM CDT Home Care Visit [address] [place] [address] Patricio Chatterjee, PT PT DISCIPLINE DISCHARGE 01/24/2025 11:15 AM CDT Home Care Visit [address] [place] [address] Shelli Mendez COTA OT HOME VISIT 01/20/2025 11:00 AM CDT Home Care Visit [address] [place] [address] Tyson Loera, PT PT HOME VISIT 01/20/2025 10:00 AM CDT Home Care Visit [address] [place] [address] Rekha Holland, RN SN HOME VISIT 01/19/2025 3:30 PM CDT Home Care Visit [address] [place] [address] Shelli Mendez RASMUSSEN OT HOME VISIT 01/17/2025 3:30 PM CDT Home Care Visit [address] [place] [address] Shelli Mendez RASMUSSEN OT HOME VISIT 01/13/2025 2:00 PM CDT Home Care Visit [address] [place] [address] Cecelia Peguero LCSW SHIP KEEPER INITIAL EVAL 01/13/2025 1:00 PM CDT Home Care Visit [address] [place] [address] Rekha Holland, RN SN HOME VISIT 01/13/2025 Home Care Visit [address] [place] [address] Cecelia Peguero LCSW SHIP KEEPER DISCIPLINE DISCHARGE 01/12/2025 2:30 PM CDT Home Care Visit [address] [place] [address] Shelli Mendez RASMUSSEN OT HOME VISIT 01/11/2025 1:00 PM CDT Home Care Visit [address] [place] [address] Rekha Holland, RN SN HOME VISIT 01/11/2025 11:30 AM CDT Home Care Visit [address] [place] [address] Tyson Loera, PT PT HOME VISIT 01/11/2025 Home Care Visit [address] [place] [address] Cecelia Peguero, [facility] CASE COMMUNICATION 01/11/2025 Home Care Visit [address] [place] [address] Rekha Holland, RN CARE CONFERENCE from Last 3 Months Immunizations Immunization Administration Dates Next Due Influenza, Quadrivalent, Spl it, Intramuscular 02/05/2018 Influenza, Unspecified 01/30/2017,01/31/2016,03/2015 Pneumococcal Conjugate PCV 13 05/07/2016 Pneumococcal Polysaccharide PPV23 01/27/2007 Pneumococcal, Unspecified 12/31/2014 Surgical History Surgery Date Site/Laterality Comments CORONARY ARTERY BYPASS GRAFT 04/21/1994 - 04/20/1995 x4v APPENDECTOMY BREAST BIOPSY BREAST LUMPECTOMY MASTECTOMY COLONOSCOPY EXPLORATORY LAPAROTOMY INSERT / REPLACE / REMOVE PACEMAKER 2019 - 04/20/2020 Biotronik ABDOMINAL AORTA STENT 04/21/2014 - 04/20/2015 CHOLECYSTECTOMY 04/21/2018 - 04/20/2019 CORONARY STENT PLACEMENT 04/21/2013 - 04/20/2014 within bypass graft FENESTRATED ENDOVASCULAR AOR TIC REPAIR - 2 VESSELS 08/03/2024 Chest/N/A Procedure: FENESTRATED ENDOVASCULAR AORTIC REPAIR - 3 VESSELS - PHYSICIAN MODIFIED - HYBRID ROOM; Surgeon: Scott Norris MD; Location: [facility] OR POD 3; Service: Vascular; Laterality: N/A; Medical devices from this surgery are in the Medical Devices section. ESOPHAGOGASTRODUODENOSCOPY 12/29/2024 N/A Medical History Medical History Date Comments Breast cancer (HCC) Skin cancer Myocardial infarction (HCC) Hypertension Hypercholesteremia Coronary artery disease Acute respiratory failure re quiring reintubation (HCC) possibly required reintubati on 2015 following AAA repair. Required post-op ventilation Sleep apnea Family History Medical History Relation Name Comments Heart disease Brother Heart disease Father Breast cancer Mother Breast cancer Mother's Sister Anesthesia problems Neg Hx Relation Name Status Comments Brother Father Mother (Age 93) 50 when di agnosed Mother's Sister (Age 88) unknown age of diagnosis Social History Tobacco Use Types Packs/Day Years Used Date Smoking Tobacco: Former Cigarettes 0.8 38 S tarted: 1954 Smokeless Tobacco: Never Tobacco Cessation:Counseling Given: Not Answered Alcohol Use Standard Drinks/Week Comments Not Currently 0 (1 standard drink = 0.6 oz pur e alcohol) OASIS D0700: Social Isolation Answer Da te Recorded Frequency of experiencing loneliness or isolatio n Never 01/27/2025 OASIS A1250: Transportation Answer Date Recorded Lack of Transportation (Medical) No 01/27/2025 Lack of Transportation (Non-Medical) No 01/27/2025 Patient Unable or Declines to Respond No 01/27/2025 OASIS B1300: Health Literacy Answer Richardson e Recorded Frequency of needing help to read materials from doctor or pharmacy Rarely 01/27/2025 AUDIT-C Answer Date Recorded Q1: How often do you have a drink containing alcohol? Never 10/06/2024 Q2: How many drinks containi ng alcohol do you have on a typical day when you are drinking? Patient does not drink Q3: How often do you have si x or more drinks on one occasion? Never 10/06/2024 Overall Financial Resource Strain (CARDIA) Answe r Date Recorded How hard is it for you to pa y for the very basics like food, housing, medical care, and heating? Not hard at all 10/07/2024 [facility]at ional [facility] - Occupational Stress Questionnaire Answer Date Recorded Do you feel stress - tense, restless, nervous, or anxious, or unable to sleep at night because your mind is troubled all the time - these days? Not at all 10/07/2024 PRAPARE - Transportation Answer Date Re corded In the past 12 months, has l ack of transportation kept you from medical appointments or from getting medications? No 09/19 In the past 12 months, has l ack of transportation kept you from meetings, work, or from getting things needed for daily living? No 10/07/2024 Housing Stability Vital Sign Answer Richardson e Recorded In the last 12 months, was t here a time when you were not able to pay the mortgage or rent on time? No 10/07/2024 In the past 12 months, how m any times have you moved where you were living? 0 10/07/2024 At any time in the past 12 m [facility], were you homeless or living in a nursing home (including now)? No 10/07/2024 Social Connection and Isolation Panel Answer Date Recorded In a typical week, how many times do you talk on the phone with family, friends, or neighbors? Three times a week 12/27/2024 How often do you get togethe r with friends or relatives? Three times a week 12/27/2024 How often do you attend chur ch or spiritism services? More than 4 times per year 12/27/2024 Do you belong to any clubs o r organizations such as adventist groups, unions, fraternal or athletic groups, or school groups? No 12/27/2024 How often do you attend meet ings of the clubs or organizations you belong to? Never 12/27/2024 Are you , , di vorced, , never , or living with a partner? 12/27/2024 Overall Financial Resource Strain (CARDIA) Answe r Date Recorded How hard is it for you to pa y for the very basics like food, housing, medical care, and heating? Not very hard 12/27/2024 Hunger Vital Sign Answer Date Recorded Within the past 12 months, y ou worried that your food would run out before you got the money to buy more. Never true 12/28/19 25 Within the past 12 months, t he food you bought just didn't last and you didn't have money to get more. Never true 12/27/2024 PRAPARE - Transportation Answer Date Re corded In the past 12 months, has l ack of transportation kept you from medical appointments or from getting medications? No 11/2024 In the past 12 months, has l ack of transportation kept you from meetings, work, or from getting things needed for daily living? No 12/27/2024 Housing Stability Vital Sign Answer Richardson e Recorded In the last 12 months, was t here a time when you were not able to pay the mortgage or rent on time? No 12/27/2024 In the past 12 months, how m any times have you moved where you were living? 0 12/27/2024 At any time in the past 12 m [facility], were you homeless or living in a nursing home (including now)? No 12/27/2024 [facility] Utilities Answer Date Recorded In the past 12 months has [employer], gas, oil, or water [employer] threatened to shut off services in your home? No 12/27/2024 Personal Safety Answer Date Recorded Have you ever been in or are you currently in a harmful physical or emotional relationship or is someone making you feel afraid or unsafe? Denies 12/24/2024 Comments No Sex and Gender Information Value Date Recorded Sex Assigned at Not on file Legal Sex Female 3:13 AM BALING MACHINE OPERATOR Gender Identity Female 09/30/2017 2:16 PM CDT Sexual Orientation Not on file Last Filed Vital Signs Vital Sign Reading Time Taken Comments Blood Pressure 116/57 03/14/2025 1:08 PM BALING MACHINE OPERATOR Pulse 75 03/14/2025 1:08 PM BALING MACHINE OPERATOR Temperature 35.9 C (96.6 F) 03/14/2025 1:08 PM BALING MACHINE OPERATOR Respiratory Rate 18 01/27/2025 1:19 PM CDT Oxygen Saturation 96% 01/27/2025 1:19 PM CDT Inhaled Oxygen Concentration - - Weight 64.2 kg (141 lb 9.6 oz) 03/14/2025 1:08 P M BALING MACHINE OPERATOR Height 162.6 cm (5' 4) 03/14/2025 1:08 PM BALING MACHINE OPERATOR Body Mass Index 24.31 03/14/2025 1:08 PM BALING MACHINE OPERATOR Plan of Treatment Health Maintenance Due Date Last Done Comments Depression Screening 1935 Osteoporosis Screening-Bone Density Scan 1935 DTaP/Tdap/Td Vaccine (1 - Tdap) 01/24/1948 Hepatitis B Screening 1955 Zoster Vaccine (1 of 2) 1987 Well Visit 65+ 2002 Covid-19 Vaccine (5 - 2024-2 6 season) 2024 03/19/2022, 03/06/2021, 07/15/2020, Additional history exists Fall Risk Assessment 01/01/2026 01/01/2025 Pneumococcal vaccine 65+ Completed 019, 05/07/2016, 12/31/2014, Additional history exists Influenza Vaccine Completed 03/09/2025, , 02/07/2023, Additional history exists Medical Devices Implanted Type Area Tire Debeader Device Identifier Shelf Expiration Date Model / Serial / Lot [employer] Coil Embolization Neymar Microcoil [place] L14cm Od6mm .018 In Catheter [id number] - [id number] Implanted:Qty: 1 on 08/03/2024 by Scott Norris MD at [facility] Embolization Coil N/A: Aorta [employer] [id number] 02/18/2029 [id number] / / [id number] Description:Used in aortic s tent [employer] Coil Embolization Neymar Microcoil [place] L7cm Od3mm .018 In Catheter [id number] - [id number] Implanted:Qty: 1 on 08/03/2024 by Scott Norris MD at [facility] Embolization Coil N/A: Aorta [employer] [id number] 01/16/2027 [id number] / / [id number] Description:Used in aortic g raft [employer] Glenny Stent Graft Iliac Leg Extension 15/[id number] Treo Polyester Nitinol 36-V8-96-140u - [id number] Implanted:Qty: 1 on 08/03/2024 by Soctt Norris MD at [facility] Graft Right: Common Iliac Artery [employer]enny [id number] 04/28/2026 28-L2-2 0-140U / / [id number] [employer]enny Graft Treo Abd Aortic Stent 30mm Bifurcate 80mm 55-J0-90-080u - [id number] Implanted:Qty: 1 on 08/03/2024 by Scott Norris MD at [facility] Stent N/A: Aorta [employer] Glenny 12/13/2026 28-B2-3 0-080U / / [id number] [employer] Stent Icast Covered System [id number] Artery 29843 - [id number] - [id number] Implanted:Qty: 1 on 08/03/2024 by Scott Norris MD at [facility] Stent N/A: Superior Mesenteric Artery [employer] [id number] 12/07/2025 75649 / [id number] / [employer] [place] [employer] Stent Icast Covered System [id number] Artery 52953 - [id number] - [id number] Implanted:Qty: 1 on 08/03/2024 by Scott Norris MD at [facility] Stent Right: Renal Artery [employer] [id number] 03/09/2027 75853 / [id number] / [employer] [place] [employer] Stent Icast Covered System [id number] Artery 47000 - [id number] - [id number] Implanted:Qty: 1 on 08/03/2024 by Scott Norris MD at [facility] Stent Left: Renal Artery [employer] [id number] 03/09/2027 42281 / [id number] / [employer]enny Stent Graft Iliac Leg Extension [id number] Treo Polyester Nitinol 94-P1-40-140u - [id number] Implanted:Qty: 1 on 08/03/2024 by Scott Norris MD at [facility] Stent Left: Common Iliac Artery [employer]enny 09/25/2026 28-L2-1 5-140U / / [id number] [employer] System Closure Repair Femoral Artery Suture Mediated Perclose Prostyle 13974-68 - [id number] Implanted:Qty: 2 on 08/03/2024 by Scott Norris MD at [facility] Vascular Closure Device Right: Groin [employer] [id number] 05/21/2026 55747-0 3 / / [id number] [employer] System Closure Repair Femoral Artery Suture Mediated Perclose Prostyle 13592-82 - [id number] Implanted:Qty: 2 on 08/03/2024 by Scott Norris MD at [facility] Closure Device Left: Groin [employer] [id number] 09/18/2025 [id number] Procedures Procedure Name Priority Date/Time Associated Diagnosis Comments CTA ABDOMEN PELVIS W WO CONTRAST Schedule Routine, Read Routine (OP Routine) 03/14/2025 12:01 PM BALING MACHINE OPERATOR Infrarenal abdominal aortic aneurysm (AAA) without rupture POCT CREATININE FOR CONTRAST EVALUATION Routine 03/14/2025 11:45 AM BALING MACHINE OPERATOR from Last 3 Months Results * CTA Abdomen Pelvis (03/14/2025 12:01 PM BALING MACHINE OPERATOR) Anatomical Region Laterality Modality Body N/A Computed Tomogra phy 03/14/2025 2:49 PM BALING MACHINE OPERATOR Impressions 03/14/2025 2:49 PM BALING MACHINE OPERATOR Slight increase in size of the excluded aneurysm sac status post aortic endovascular repair. There appears to be tiny blushes of contrast in the aneurysm sac posteriorly on venous phase, likely related to lumbar arteries, suggesting type II endoleak. Electronically signed by: Tyson Muro M.D. Narrative 03/14/2025 2:49 PM BALING MACHINE OPERATOR EXAMINATION: CTA ABDOMEN PELVIS with intravenous contrast. 3-D reconstruction. TECHNIQUE: CT angiography of the abdomen and pelvis with intravenous contrast. Post-processed 3D images were generated on a dedicated workstation and also reviewed. HISTORY: s/p TEVAR FINDINGS: Lung bases are unremarkable. No pleural effusion. Cardiomegaly partially imaged. Esophagus and stomach are nondistended. Spleen is unremarkable. No suspicious liver lesion. Cholecystectomy change. Pancreas is normal. Adrenal glands are normal. Kidneys enhance symmetrically. No hydronephrosis. Small hypodense renal lesions are likely cysts, too small to characterize. 6 mm intermediate density exophytic left interpolar renal lesion is unchanged. Urinary bladder is normal. Endovascular aortic stent graft extending from the level of the diaphragmatic renny to the iliac vasculature. No definite endoleak aneurysm sac spans 8.9 cm, increased from 8.6 cm when measured in a similar fashion. Likely tiny blushes of contrast in the aneurysm sac posteriorly (series 7 image 195, 192). No bowel obstruction. No lymphadenopathy. Right renal cyst. No acute or suspicious osseous abnormality. Procedure Note Tyson Muro MD - 03/14/2025 EXAMINATION: CTA ABDOMEN PELVIS with intravenous contrast. 3-D reconstruction. TECHNIQUE: CT angiography of the abdomen and pelvis with intravenous contrast. Post-processed 3D images were generated on a dedicated workstation and also reviewed. HISTORY: s/p TEVAR FINDINGS: Lung bases are unremarkable. No pleural effusion. Cardiomegaly partially imaged. Esophagus and stomach are nondistended. Spleen is unremarkable. No suspicious liver lesion. Cholecystectomy change. Pancreas is normal. Adrenal glands are normal. Kidneys enhance symmetrically. No hydronephrosis. Small hypodense renal lesions are likely cysts, too small to characterize. 6 mm intermediate density exophytic left interpolar renal lesion is unchanged. Urinary bladder is normal. Endovascular aortic stent graft extending from the level of the diaphragmatic renny to the iliac vasculature. No definite endoleak aneurysm sac spans 8.9 cm, increased from 8.6 cm when measured in a similar fashion. Likely tiny blushes of contrast in the aneurysm sac posteriorly (series 7 image 195, 192). No bowel obstruction. No lymphadenopathy. Right renal cyst. No acute or suspicious osseous abnormality. IMPRESSION: Slight increase in size of the excluded aneurysm sac status post aortic endovascular repair. There appears to be tiny blushes of contrast in the aneurysm sac posteriorly on venous phase, likely related to lumbar arteries, suggesting type II endoleak. Electronically signed by: Tyson Muro M.D. us Scott Norris MD IMG CT PROCEDURES Final Resu lt * POCT creatinine for contrast evaluation (03/14/2025 11:45 AM BALING MACHINE OPERATOR) Creatinine, POC 1.2 0.6 - 1.3 mg/dL Blood 03/14/2025 11:4 5 AM BALING MACHINE OPERATOR us Scott Norris MD POINT OF CARE TEST ORDERABLE S Final Result from Last 3 Months Insurance [employer] [facility] Address: [place] [address] Advance Directives For more information, please contact: [phone] Documents on File Type Date Recorded Patient Surgical Instrument Repair Specialist Expl anation ADVANCE DIRECTIVE 08/03/2024 10:52 AM Janeen Barfield * Full Code (Latest Code Status on File) Date Activated Date Inactivated Comments 12/30/2024 7:45 AM 01/01/2025 7:40 PM * Full Code Date Activated Date Inactivated Comments 12/24/2024 8:19 PM 12/30/2024 7:45 AM * Full Code Date Activated Date Inactivated Comments 10/06/2024 3:37 AM 10/08/2024 9:34 PM * Full Code Date Activated Date Inactivated Comments 08/26/2024 8:21 PM 08/27/2024 8:05 PM * Full Code Date Activated Date Inactivated Comments 08/03/2024 2:21 PM 08/04/2024 6:17 PM Care Teams Packing And Wrapping Supervisor Relationship Specialty Start Date End Date Cornelio Magaña MD PCP - General Internal Medicine 09/28/18 [place] [address] [place] [address] Consulting Physician Vascular Surgery 08/04/24 [place] [address] [facility] [address] [place] [address] Consulting Physician Gastroenterology 08/27/24 [place] [address] [facility] [address] [place] [address] Consulting Physician Cardiology 10/08/24 [place] [address] [facility] [address] [place] [address] Consulting Physician Pulmonary Disease 10/08/24 Adrianne Aguilar MD [address] [facility] [address] [place] [address] Consulting Physician Gastroenterology 01/01/25 Avila Acevedo MD [address] [place] [address] Referring Physician Cardiology 01/01/25
--- OUTSIDE RECORDS SUMMARY | 2025-04-12 14:24 | XMS_ITS | Clinical Summary ---
Author Organization [facility] Address [address] [address] Care Team Providers Care Architectural Practice Manager Name Role Phone Unavailable Primary Care Provider Unavailabl e Allergies Active Allergy Reactions Criticality Noted Date Comments Clindamycin Unknown,Rash Medium 06/21/2024 Iodinated Contrast Media Nausea and Vomiting Low Iodine Nausea and Vomiting,Rash,Shortness of Breath/Wheezing High 06/01/2015 Penicillins Photosensitivity,Rash Medium 06/01/2015 Sulfa (Sulfonamide Antibiotics) Rash High 04/12/2025 Medications Eliquis 2.5 mg tablet Take 2.5 mg by mouth 2 times daily. 5 Active dilTIAZem (CARDIZEM CD, CARTIA XT) 300 mg Controlled Delivery 24 hour capsule Take 300 mg by mouth daily in the morning. 5 Active dofetilide (TIKOSYN) 250 mcg capsule Take 250 mcg by mouth 2 times daily. 3 Active furosemide (LASIX) 20 mg tablet TAKE 1 TABLET BY MOUTH EVERY MORNING AND 1 TABLET AT LUNCH DIRECTED Active losartan (COZAAR) 50 mg tablet Take 1 Tablet by mouth daily. 5 Active magnesium OXIDE (MAG-OX) 400 mg (241.3 mg magnesium) tablet Take 2 Tablets by mouth 2 times daily. 5 Active metoprolol tartrate (LOPRESSOR) 50 mg tablet TAKE 1/2 TABLET BY MOUTH TWICE DAILY 5 Active pantoprazole (PROTONIX) 40 mg Tablet, Delayed Release (E.C.) Take 40 mg by mouth daily. 5 Active pravastatin (PRAVACHOL) 40 mg tablet Take 40 mg by mouth daily. Active Anoro Ellipta 62.5-25 mcg/actuation Disk with Device Take 1 Puff by inhalation daily. Active cyanocobalamin 1,000 mcg Tablet Take 1,000 mcg by mouth daily. Active CHOLECALCIFEROL , VITAMIN D3, ORAL Take by mouth. Activ e Active Problems Problem Noted Date Diagnosed Date Anemia, chronic disease 04/12/2025 Vitamin B12 deficiency anemia 04/12/2025 Encounters Date Type Department Care Team Description 04/12/2025 1:30 PM SH[facility]TLE SPOTTER Office Visit [facility] Oncology and Hematology - [place] [address] [place] [id number] Ramez Rodas MD Anemia, chronic disease (Primary Dx); Other vitamin B12 deficiency anemia from Last 3 Months Family History Medical History Relation Name Comments Heart Disease Brother 1 Heart Disease Brother 2 Liver Cancer Child 1 Lung Cancer Child 1 No Known Problems Child 2 Breast Cancer Child 3 Heart Disease Father Breast Cancer Mother Relation Name Status Comments Brother 1 Brother 2 Child 1 Child 2 Alive Child 3 Alive Father Mother Social History Tobacco Use Types Packs/Day Years [...] Comments Blood Pressure 115/67 04/12/2025 1:19 PM SHUTTLE SPOTTER Pulse 80 04/12/2025 1:19 PM SHUTTLE SPOTTER Temperature 36.6 C (97.9 F) 04/12/2025 1:19 PM SHUTTLE SPOTTER Respiratory Rate 16 04/12/2025 1:19 PM SHUTTLE SPOTTER Oxygen Saturation 90% 04/12/2025 1:1 9 PM SHUTTLE SPOTTER 3 liters O2 Inhaled Oxygen Concentration - - Weight 63.8 kg (140 lb 9.6 oz) 04/12/20 1:19 PM SHUTTLE SPOTTER Height 162.6 cm (5' 4) 04/12/2025 1:19 PM SHUTTLE SPOTTER Body Mass Index 24.13 04/12/2025 1:19 PM SHUTTLE SPOTTER Plan of Treatment Upcoming Encounters Date Type Department Care Team (Late st Contact Info) Description 05/09/2025 4:30 PM SHUTTLE SPOTTER Telephone Check Up [facility] Oncology and Hematology - [place] [address] [place] [address] Fabricio Brooks MD [id number] [place] [address] Health Maintenance Due Date Last Done Comments DTAP/TDAP/TD VACCINES (1 - Tdap) 01/24/1954 ZOSTER VACCINE (1 of 2) 1987 RSV VACCINE (60+ or ) (1 - 1-dose 75+ series) 01/24/2012 Medicare Advantage (ID) Preventative Visit/Annual Wellness Visit 04/21/2024 10/16/2023, 11/01/2022, 07/02/2022 OSTEOPOROSIS SCREENING 06/14/2025 06/14/2020 PNEUMOCOCCAL VACCINE 50+ YEARS Completed 1 , 05/07/2016, 12/31/2014, Additional history exists INFLUENZA VACCINE Completed 03/09/2025, , 02/07/2023, Additional history exists Insurance [employer] O [facility]
[2025-04-12 15:00] LABS: Hematocrit 32.5 % (37.0-47.0); Hemoglobin 10.3 g/dL (12.0-15.0); Immature Granulocyte Percent A 0.7 % (0-0.5); Immature Platelet Fraction Pct 8.1 % (0.9-11.2); Lymphocytes Absolute Auto 0.89 K/mm3 (0.9-3.2); Mean Corpuscular HGB Conc 31.7 g/dl (32-36); Mean Corpuscular Hemoglobin 32.1 pg (26-34); Mean Corpuscular Volume 101.2 fl (80-100); Nucleated Red Blood Cells Absolute Auto 0.000 K/mm3 (0.0-0.012); Nucleated Red Blood Cells Perc 0.0 % (0.0-0.2); Platelet Count Result 136 k/mm3 (150-375); Red Blood Count 3.21 M/mm3 (4.2-5.4); White Blood Count 3.0 K/mm3 (4.5-10.0)
[2025-04-12 16:29] LABS: Alanine Aminotransferase 10 U/L (6-35); Albumin Level 4.0 g/dL (3.5-5.1); Alkaline Phosphatase 92 U/L (38-126); Aspartate Amino Transferase 33 U/L (14-36); Bilirubin,Total 0.7 mg/dL (0.2-1.3); Blood Urea Nitrogen 13 mg/dL (7-17); Calcium 10.9 mg/dL (8.4-10.2); Chloride 94 mmol/L (98-107); Estimated Glomerular Filt Rate 52; Glucose 96 mg/dL (65-110); Potassium 2.9 mmol/L (3.4-5.0); Sodium 140 mmol/L (137-145); Total Protein 7.2 g/dL (6.3-8.2)
[2025-04-12 16:30] LABS: Iron 56 ug/dL (37-170)
[2025-04-12 16:36] LABS: Carbon Dioxide > 40 mmol/L (22-30)
[2025-04-12 16:42] LABS: Percent Iron Saturation 20 % (20-50)
[2025-04-12 17:06] LABS: Thyroid Stimulating Hormone 1.150 uIU/mL (0.465-4.680)
[2025-04-12 17:13] LABS: Ferritin 312.00 ng/mL (11.1-264)
[2025-04-12 17:43] LABS: Vitamin B12 > 1000.0 pg/mL (239-931)
== END 2025-04-12 14:21 | disposition home or self-care (01) ==
PROVIDERS: PCP Internal Medicine; Visit Provider Internal Medicine Hematology & Oncology
DX: R69 Illness, unspecified (principal); D63.8 Anemia in other chronic diseases classified elsewhere; I10 Essential (primary) hypertension
CPT/HCPCS: 36415; 80053; 82607; 82728; 82746; 83540; 83550; 83615; 84443; 85025; 85055; 86880; 88184